=== PATIENT | male | born 1935 | race Caucasian/White ===

== ENCOUNTER → 2016-07-28 | Outpatient (CLI) | payer MEDICARE, OTHER | END | disposition home or self-care (01) | LOC: RAD.S 12:32 | DX: E11.49 Type 2 diabetes mellitus with other diabetic neurological complication (principal); I73.9 Peripheral vascular disease, unspecified ==

== ENCOUNTER → 2016-09-14 | Outpatient (CLI) | payer MEDICARE, OTHER | END | disposition home or self-care (01) | LOC: RAD.S 09-12 16:36 | DX: E11.621 Type 2 diabetes mellitus with foot ulcer (principal) ==